=== PATIENT | female | born 1950 | race Caucasian/White ===

== ENCOUNTER → 2016-06-23 | Outpatient (CLI) | payer MEDICARE, OTHER ==
[~2016-06-23] MED LIST: ALAVERT10 M1 PO; AMOXICILLIN875 MG PO; ANTACID 225 MG360 M1 PO; ARIMIDEX1 MG PO; AYR SALINE GEL1 NS; B-12 500 MCG; B-12500 MCG PO; BONINE25 MG PO; CALCIUM 600 PLU1 TAB PO; CALCIUM CARB W/1 TA1 PO; CALCIUM CARBONA1 TA7 PO; CARDI-OMEGA1000 MG PO; CHROMIUM GTF200 MCG PO; CHROMIUM PICO200 MC2 PO; CLARITIN 1010 MG/TAB PO; CO Q-1010 M1 PO; CO Q-1030 MG PO; CRANBERRY450 MG PO; DOXYCYCLINE 10100 MG PO; ESTRACE0.1 MG/GM VG; ESTRACE1 MG PO; FIBER0.52 GM PO; GINKGO3; GINKGO3 PO; GLUCOSAMINE & C1 CA1 PO; GLUCOSAMINE 1000; GOOD SENSE ASP325 M1 PO; K-BICARB99 MG PO; MAGNESIUM250 M1 PO; MELATONIN3 M1; METAMUCIL FIBE1 EACH PO; MULTI VITAMINS1 TAB PO; NORCO 325 MG-51 TAB PO; OMEGA-3 FISH1000 MG PO; OMEPRAZOLE D/R20 MG PO; POTASSIUM GLUC595 M1 PO; PRESERVISION1 SGL PO; PRILOSEC 20MG20 MG PO; PROBIOTIC ACID1 EAC3 PO; PROBIOTICA100 Milli1 PO; REFRESH 1 ML1 ML OP; REFRESH LIQUIGE30 ML OP; SALINE NASAL SP45 ML NS; TESSALON P100 MG/CAP PO; THE MEDICINE S200 M2 PO; TRAVATAN Z 5 ML5 ML OU; TYLENOL 500MG500 MG PO; VITAMIN B COMPL1 T16 PO; VITAMIN C500 MG PO; VITAMIN D 400400 IU PO; VITAMIN D1000 IU PO; ZADITOR 5 ML5 ML; ZADITOR 5 ML5 ML OU; ZANTAC 7575 MG PO; ZIAC 5/6.25MG T1 TAB PO; [UNRECOGNIZED DRUG - OTHER] PO
== END ==
LOC: MC.RAD 08:23
DX: D24.1 Benign neoplasm of right breast (principal); Z85.3 Personal history of malignant neoplasm of breast; Z80.3 Family history of malignant neoplasm of breast

== ENCOUNTER → 2016-12-29 | Outpatient (CLI) | payer MEDICARE, OTHER | LOC: MC.RAD 08:23 | DX: C50.911 Malignant neoplasm of unspecified site of right female breast (principal); R92.8 Other abnormal and inconclusive findings on diagnostic imaging of breast; Z90.11 Acquired absence of right breast and nipple ==

== ENCOUNTER 2017-08-30 14:32 | Emergency (ER) | payer MEDICARE ==
[~2017-08-30] VITALS: Ht 170.2 cm; Wt 67.7 kg
[2017-08-30] MEDS ORDERED: PRILOSEC 20MG20 MG PO (15:28)
[2017-08-30 15:49] VITALS: BP 156/81; PULSE 77; TEMP 98.3
== END 2017-08-30 15:50 | disposition home or self-care (01) ==
LOC: COL.ER 14:32
DX: S06.0X0A Concussion without loss of consciousness, initial encounter (principal); Z79.82 Long term (current) use of aspirin; Z85.3 Personal history of malignant neoplasm of breast; W01.198A Fall on same level from slipping, tripping and stumbling with subsequent striking against other object, initial encounter

== ENCOUNTER → 2017-12-31 | Outpatient (CLI) | payer MEDICARE, OTHER | LOC: MC.RAD 08:48 | DX: Z12.31 Encounter for screening mammogram for malignant neoplasm of breast (principal); Z85.3 Personal history of malignant neoplasm of breast; Z98.890 Other specified postprocedural states ==

== ENCOUNTER 2018-06-03 19:53 | Emergency (ER) | payer MEDICARE, OTHER ==
[~2018-06-03] VITALS: Ht 170.2 cm; Wt 67.3 kg
[2018-06-03 19:59] VITALS: TEMP 97.8
[2018-06-03 20:57] LABS: BASO # 0.1 (0.0-0.2); BASO % 0.7 % (0.0-2.0); EOS # 0.1 (0.0-0.7); EOS % 0.9 % (0-4.0); GRAN # 4.5 (1.4-6.5); GRAN % 63.7 % (42.2-75.2); HEMATOCRIT 42.9 % (37.0-47.0); HEMOGLOBIN 14.7 g/dl (12.5-16.0); LYMPH # 1.7 (1.2-3.4); LYMPH % 24.1 % (20.0-51.0); MEAN CELL VOLUME 94 fl (80.0-100.0); MEAN CORPUSCULAR HEMOGLOBIN 32 pg (27.0-31.0); MEAN CORPUSCULAR HGB CONC 34 g/dl (33.0-37.0); MEAN PLATELET VOLUME 9.3 fl (7.4-10.4); MONO # 0.7 (0.1-0.6); MONO % 10.3 % (1.7-9.3); PLATELET COUNT 258 K/mm3 (130-400); RED BLOOD COUNT 4.59 M/mm3 (4.10-5.30); REDCELL DISTRIBUTION WIDTH-CV 11.9 % (11.5-14.5)
[2018-06-03 20:59] LABS: INR 1.2 (0.8-3.0); PROTHROMBIN TIME 13.2 SECONDS (9.7-12.8)
[2018-06-03 21:01] LABS: PARTIAL THROMBOPLASTIN TIME 32.6 SECONDS (26.0-37.0)
[2018-06-03 21:04] LABS: ALANINE AMINOTRANSFERASE 24 U/L (9-52); ALKALINE PHOSPHATASE 80 U/L (50-136); ANION GAP 9 mmol/L (7-16); AST,SGOT 34 U/L (15-37); BLOOD UREA NITROGEN 16 mg/dL (7-17); CALCIUM 9.1 mg/dL (8.4-10.2); CARBON DIOXIDE 26 mmol/L (22-30); CHLORIDE 98 mmol/L (98-107); CREATININE, serum 0.96 mg/dL (0.52-1.25); GLUCOSE 109 mg/dL (74-106); POTASSIUM 4.1 mmol/L (3.4-5.0); SODIUM 134 mmol/L (137-145); TOTAL PROTEIN 7.1 gm/dL (6.4-8.2)
[2018-06-03 21:16] LABS: TROPONIN-I < 0.012 ng/mL (0.000-0.035)
[2018-06-03] MEDS ORDERED: CLARITIN 1010 MG/TAB PO (21:49)
[2018-06-03] MEDS ORDERED: ASPIRIN 32325 MG/TAB PO (21:49)
[2018-06-03] MEDS ORDERED: TRAVATAN Z 2.52.5 ML OS (21:50)
[2018-06-03] MEDS ORDERED: PRILOTC (21:50)
[2018-06-03] MEDS ORDERED: ZIAC 5/6.25MG T1 TAB PO (21:50)
[2018-06-03] MEDS ORDERED: ARIMIDEX1 MG PO (21:52)
[2018-06-03] MEDS ORDERED: ESTRACE0.1 MG/GM VG (21:52)
[2018-06-03] MEDS ORDERED: TYLENOL 325MG325 MG PO (21:52)
[2018-06-03 22:26] VITALS: BP 151/82; PULSE 70
[2018-06-04] MEDS ORDERED: PRESERVISION1 SGL PO (00:22)
[2018-06-04] MEDS ORDERED: B COMPLEX & B121 TAB (00:22)
[2018-06-04] MEDS ORDERED: CALCIUM CARB W/1 TA1 PO (00:23)
[2018-06-04] MEDS ORDERED: CHROMIUM PICO200 MC2 PO (00:23)
[2018-06-04] MEDS ORDERED: BONINE25 MG PO (00:23)
[2018-06-04] MEDS ORDERED: THE MEDICINE S200 M2 PO (00:23)
[2018-06-04] MEDS ORDERED: VITAMIN D31000 I1 PO (00:24)
[2018-06-04] MEDS ORDERED: CRANBERRY FRUI425 MG PO (00:24)
[2018-06-04] MEDS ORDERED: GLUCOSAMINE & C1 TAB PO (00:25)
[2018-06-04] MEDS ORDERED: GLUCOSAMIN 500 (00:25)
[2018-06-04] MEDS ORDERED: FISH OIL 1000MG1 CAP PO (00:26)
[2018-06-04] MEDS ORDERED: FLONASE SENSIM9.9 ML NS (00:26)
[2018-06-04] MEDS ORDERED: NATURAL POTASS595 MG (00:26)
[2018-06-04] MEDS ORDERED: EYE DROP ADVANC15 ML OP (00:27)
== END 2018-06-03 22:26 | disposition home or self-care (01) ==
LOC: COL.ER 19:53
PROVIDERS: Family Medicine
DX: R07.89 Other chest pain (principal); I10 Essential (primary) hypertension

== ENCOUNTER 2018-08-12 17:15 | Emergency (ER) | payer MEDICARE, OTHER ==
[~2018-08-12] VITALS: Ht 170.2 cm; Wt 68.2 kg
[~2018-08-12 17:15] MED LIST changes: +ASPIRIN 32325 MG/TAB PO; +B COMPLEX & B121 TAB; +CRANBERRY FRUI425 MG PO; +EYE DROP ADVANC15 ML OP; +FISH OIL 1000MG1 CAP PO; +FLONASE SENSIM9.9 ML NS; +GLUCOSAMIN 500; +GLUCOSAMINE & C1 TAB PO; +NATURAL POTASS595 MG; +PRILOTC; +TRAVATAN Z 2.52.5 ML OS; +TYLENOL 325MG325 MG PO; +VITAMIN D31000 I1 PO
[2018-08-12 17:19] VITALS: BP 172/79; TEMP 97.4
[2018-08-12 18:20] VITALS: PULSE 97
== END 2018-08-12 18:25 | disposition home or self-care (01) ==
LOC: COL.ER 17:15
DX: S00.33XA Contusion of nose, initial encounter (principal); S80.01XA Contusion of right knee, initial encounter; R04.0 Epistaxis; Z79.82 Long term (current) use of aspirin; Z79.51 Long term (current) use of inhaled steroids; W22.8XXA Striking against or struck by other objects, initial encounter

== ENCOUNTER 2018-08-15 17:02 | Emergency (ER) | payer MEDICARE, OTHER ==
[~2018-08-15] VITALS: Ht 170.2 cm; Wt 68.2 kg
[2018-08-15 17:06] VITALS: TEMP 98.8
[2018-08-15 18:42] VITALS: BP 150/73; PULSE 69
== END 2018-08-15 18:33 | disposition home or self-care (01) ==
LOC: COL.ER 17:02
DX: R42 Dizziness and giddiness (principal); R51 Headache

== ENCOUNTER 2018-12-05 23:24 | Emergency (ER) | payer MEDICARE, OTHER ==
[~2018-12-05] VITALS: Ht 170.2 cm; Wt 66.4 kg
[2018-12-05 23:31] VITALS: TEMP 98.2
[2018-12-06 01:27] LABS: BASO # 0.1 (0.0-0.2); BASO % 0.5 % (0.0-2.0); EOS # 0.1 (0.0-0.7); EOS % 0.8 % (0-4.0); GRAN # 7.7 (1.4-6.5); GRAN % 78.4 % (42.2-75.2); HEMATOCRIT 41.6 % (37.0-47.0); HEMOGLOBIN 14.1 g/dl (12.5-16.0); LYMPH # 1.2 (1.2-3.4); LYMPH % 12.2 % (20.0-51.0); MEAN CELL VOLUME 94 fl (80.0-100.0); MEAN CORPUSCULAR HEMOGLOBIN 32 pg (27.0-31.0); MEAN CORPUSCULAR HGB CONC 34 g/dl (33.0-37.0); MEAN PLATELET VOLUME 9.5 fl (7.4-10.4); MONO # 0.8 (0.1-0.6); MONO % 7.7 % (1.7-9.3); PLATELET COUNT 239 K/mm3 (130-400); RED BLOOD COUNT 4.42 M/mm3 (4.10-5.30); REDCELL DISTRIBUTION WIDTH-CV 11.9 % (11.5-14.5)
[2018-12-06 01:34] LABS: ALANINE AMINOTRANSFERASE 25 U/L (9-52); ALBUMIN 4.2 gm/dL (3.5-5.0); ALKALINE PHOSPHATASE 91 U/L (50-136); ANION GAP 9 mmol/L (7-16); AST,SGOT 30 U/L (15-37); BILIRUBIN,TOTAL 0.6 mg/dL (0.0-1.0); BLOOD UREA NITROGEN 18 mg/dL (7-17); CALCIUM 9.1 mg/dL (8.4-10.2); CARBON DIOXIDE 29 mmol/L (22-30); CHLORIDE 96 mmol/L (98-107); CREATININE, serum 0.89 (0.52-1.25); GLUCOSE 124 mg/dL (74-106); POTASSIUM 4.3 mmol/L (3.4-5.0); SODIUM 135 mmol/L (137-145); TOTAL PROTEIN 7.3 gm/dL (6.4-8.2)
[2018-12-06 01:45] LABS: TROPONIN-I < 0.012 ng/mL (0.000-0.035)
[2018-12-06 04:10] VITALS: BP 158/79; PULSE 80
== END 2018-12-06 04:10 | disposition home or self-care (01) ==
LOC: COL.ER 23:24
PROVIDERS: Emergency Medicine
DX: M25.512 Pain in left shoulder (principal); Z85.3 Personal history of malignant neoplasm of breast; Z79.82 Long term (current) use of aspirin

== ENCOUNTER → 2019-01-03 | Outpatient (CLI) | payer MEDICARE, OTHER | LOC: MC.RAD 09:04 | DX: Z12.31 Encounter for screening mammogram for malignant neoplasm of breast (principal); C50.411 Malignant neoplasm of upper-outer quadrant of right female breast; Z98.890 Other specified postprocedural states ==

== ENCOUNTER 2019-04-11 14:45 | Outpatient (RCR) | payer MEDICARE, OTHER | END 2019-04-22 13:57 | disposition home or self-care (01) | LOC: WSC 14:45 | DX: M54.5 Low back pain (principal); M25.552 Pain in left hip ==

== ENCOUNTER → 2020-01-06 | Outpatient (CLI) | payer MEDICARE, OTHER | LOC: MC.RAD 09:12 | DX: Z12.31 Encounter for screening mammogram for malignant neoplasm of breast (principal); Z98.890 Other specified postprocedural states; Z80.3 Family history of malignant neoplasm of breast; Z92.3 Personal history of irradiation ==

== ENCOUNTER 2020-06-23 18:07 | Emergency (ER) | payer MEDICARE, OTHER ==
[~2020-06-23] VITALS: Ht 167.6 cm; Wt 68.2 kg
[2020-06-23 18:13] VITALS: TEMP 98.3
[2020-06-23 18:27] LABS: BASO # 0.1 (0.0-0.2); BASO % 0.5 % (0.0-2.0); EOS # 0.1 (0.0-0.7); EOS % 0.7 % (0-4.0); GRAN # 6.9 (1.4-6.5); GRAN % 70.5 % (42.2-75.2); HEMATOCRIT 42.5 % (37.0-47.0); HEMOGLOBIN 14.6 g/dl (12.5-16.0); LYMPH # 1.9 (1.2-3.4); LYMPH % 19.6 % (20.0-51.0); MEAN CELL VOLUME 93 fl (80.0-100.0); MEAN CORPUSCULAR HEMOGLOBIN 32 pg (27.0-31.0); MEAN CORPUSCULAR HGB CONC 34 g/dl (33.0-37.0); MEAN PLATELET VOLUME 9.4 fl (7.4-10.4); MONO # 0.8 (0.1-0.6); MONO % 8.3 % (1.7-9.3); PLATELET COUNT 267 K/mm3 (130-400); RED BLOOD COUNT 4.56 M/mm3 (4.10-5.30); REDCELL DISTRIBUTION WIDTH-CV 12.3 % (11.5-14.5)
[2020-06-23 18:37] LABS: ALANINE AMINOTRANSFERASE 29 U/L (4-34); ALBUMIN 4.3 gm/dL (3.5-5.0); ALKALINE PHOSPHATASE 95 U/L (50-136); ANION GAP 8 mmol/L (7-16); AST,SGOT 33 U/L (15-37); BLOOD UREA NITROGEN 16 mg/dL (7-17); CALCIUM 9.1 mg/dL (8.4-10.2); CARBON DIOXIDE 26 mmol/L (22-30); CHLORIDE 97 mmol/L (98-107); CREATININE, serum 0.71 (0.52-1.25); GLUCOSE 103 mg/dL (74-106); MAGNESIUM 1.8 mg/dL (1.6-2.3); SODIUM 131 mmol/L (137-145); TOTAL PROTEIN 7.5 gm/dL (6.4-8.2)
[2020-06-23 18:52] LABS: TROPONIN-I < 0.012 ng/mL (0.000-0.035)
[2020-06-23 18:53] LABS: POTASSIUM 3.9 mmol/L (3.4-5.0)
[2020-06-23 19:36] VITALS: BP 151/78; PULSE 71
== END 2020-06-23 19:41 | disposition home or self-care (01) ==
LOC: COL.ER 18:07
PROVIDERS: Emergency Medicine
DX: I49.1 Atrial premature depolarization (principal); I10 Essential (primary) hypertension; K21.9 Gastro-esophageal reflux disease without esophagitis; Z88.1 Allergy status to other antibiotic agents; Z88.2 Allergy status to sulfonamides; Z88.6 Allergy status to analgesic agent; Z79.82 Long term (current) use of aspirin
CPT/HCPCS: J7030

== ENCOUNTER → 2021-01-07 | Outpatient (CLI) | payer MEDICARE, OTHER | LOC: MC.RAD 09:37 | DX: Z12.31 Encounter for screening mammogram for malignant neoplasm of breast (principal); Z80.3 Family history of malignant neoplasm of breast; Z92.3 Personal history of irradiation; Z98.890 Other specified postprocedural states ==

== ENCOUNTER 2021-12-29 14:30 | Emergency (ER) | payer MEDICARE, OTHER ==
[~2021-12-29] VITALS: Ht 170.2 cm; Wt 68.6 kg
[2021-12-29 14:56] VITALS: TEMP 98.4
[2021-12-29 16:40] VITALS: BP 156/78; PULSE 75
== END 2021-12-29 18:47 | disposition home or self-care (01) ==
LOC: COL.ER 14:30
DX: H57.12 Ocular pain, left eye (principal); H40.9 Unspecified glaucoma; Z91.040 Latex allergy status

== ENCOUNTER → 2022-01-08 | Outpatient (CLI) | payer MEDICARE, OTHER | LOC: MC.RAD 09:58 | DX: Z12.31 Encounter for screening mammogram for malignant neoplasm of breast (principal); Z85.3 Personal history of malignant neoplasm of breast; Z90.11 Acquired absence of right breast and nipple; Z92.3 Personal history of irradiation ==

== ENCOUNTER → 2023-03-12 | Outpatient (CLI) | payer MEDICARE, OTHER | LOC: CANSCHCLI → MC.RAD 07:14 | DX: Z12.31 Encounter for screening mammogram for malignant neoplasm of breast (principal) ==